=== PATIENT | male | born 1970 | race Caucasian/White ===

== ENCOUNTER → 2017-12-28 | Outpatient (CLI) | payer BC, OTHER ==
--- NOTE | 2017-12-28 22:04 | MRI ---
EXAM DESCRIPTION: Shoulder,Right: MRI. CLINICAL HISTORY: SHOULDER PAIN COMPARISON: None. TECHNIQUE: Multiplanar, high-field MRI, multiple sequences, without contrast: Right shoulder. FINDINGS: A transverse fracture line is noted just inferior to the humeral head epiphysis extending from the lateral cortex to the mid humeral shaft. Additional fracture lines are noted in the anterior greater tuberosity and anterior humeral head and proximal humeral shaft laterally. The anterior tuberosity appears minimally displaced on the oblique sagittal T1 view. Marrow edema extends to the medial cortex of the humeral shaft and humeral neck with soft tissue edema abutting the lateral humeral head and shaft. Minimal fluid on the bursal surface of the anterior fibers of the supraspinatus tendon. No fluid in the subacromion/subdeltoid bursa. Remaining tendons of the rotator cuff are intact. No significant muscle atrophy. Minimal arthrosis in the AC joint with subchondral edema of the clavicular facet. Mild downsloping of the lateral acromion with type II curvature narrowing the supraspinatus tendon outlet in the cortical acromial arch is minimally flattened. Coracoid ligaments are intact. Minimal fluid in the subcoracoid bursa. No abnormal marrow signal in the acromion of the coracoid process. No glenohumeral joint effusion. No osteochondral lesions in the humeral head or glenoid fossa. Posterior origin of the bicipital labral anchor. Minimal fluid signal in the superior aspect of the posterior glenoid labrum. Long head biceps tendon is intact and resides within the bicipital groove. IMPRESSION: 1. Comminuted fracture of the lateral and inferior right humeral head extending into the humeral shaft. Minimal displacement of the anterior greater tuberosity. 2. Anterior supraspinatus tendinopathy versus bursal surface tear. 3. Arthrosis of the AC joint. Subchondral edema distal clavicle. Minimal flattening of the coracoacromial arch due to morphology of the acromion process. 4. Possible focal tear in the superior aspect of the posterior glenoid labrum. Consider MR shoulder arthrography for more sensitive evaluation of the labrum. No acute marrow or cortical injury of the scapula. Electronically signed by: Maurice Malone MD 12/28/2017 10:04 PM [employer] Workstation: [id number]
== END ==
LOC: MRI 08:59
PROVIDERS: ATTEND Orthopaedic Surgery
DX: S42.291A Other displaced fracture of upper end of right humerus, initial encounter for closed fracture (principal); M19.011 Primary osteoarthritis, right shoulder